=== PATIENT | male | born 2000 | race American Indian/Alaskan Native ===

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

== ENCOUNTER 2024-08-15 07:47 | Emergency (ER) | payer SELFPAY ==
[2024-08-15] MEDS: Ibuprofen 800 MG Tab PO ONE (08:16)
[2024-08-15] MEDS: Acetaminophen 500 MG Tab PO ONE (08:17)
== END 2024-08-15 10:00 | disposition home or self-care (01) ==
LOC: DL.ED 07:47
DX: J06.9 Acute upper respiratory infection, unspecified (principal); R05.2 Subacute cough; Z86.16 Personal history of COVID-19
CPT/HCPCS: 71046; 87428; 99283; A9270